=== PATIENT | male | born 1960 | race Caucasian/White ===

== ENCOUNTER 2016-10-26 12:18 | Emergency (ER) | payer MEDICARE ==
[~2016-10-26 12:18] MED LIST: ALPR2TAB2 PO; GABA800T PO; HYDR2TAB27 PO; INSU100I18 SUBQ; INSU100V4 SUBQ; INSU3INS3 SUBQ; MTH10T PO; OXYC30TA48 PO; POTA10CA42 PO; cannabis
[2016-10-26 12:25] VITALS: BP 149/83; PULSE 81; RESP 18; O2SAT 96
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
--- NOTE | 2016-10-26 15:04 | DRSVH ---
PROCEDURE: CT BRAIN WITHOUT CONTRAST ([id number]) INDICATIONS: fall, head injury, somnolent TECHNIQUE: Noncontrast 4.5 mm thick angled axial sections acquired from the foramen magnum to the vertex, with c oronal reformats. COMPARISON: [facility], CT, CT CERVICAL SPINE WO CON, 10/26/2016, 14:51. [facility], CT, BRAIN W/O CONTRAST, 11/06/2008, 10:33. FINDINGS: Image quality: Diagnostic CSF spaces: Basal cisterns are patent. No extra-axial fluid collections. Ventricles are normal in size and shape. Brain: No midline shift. No intracranial masses or hemorrhage. Souza-white matter interface is norm al. Skull and face: Calvarium and visualized facial bones are intact, without suspicious lesions. Sinuses: Visualized sinuses and mastoids are clear. IMPRESSION: Negative head CT. No acute intracranial hemorrhage is evident. Dictated by: Phil Corbin M.D. on 10/26/2016 at 14:01 Approved by: Phil Corbin M.D. on 10/26/2016 at 14:03
--- NOTE | 2016-10-26 15:07 | DRSVH ---
PROCEDURE: CT CERVICAL SPINE WITHOUT CONTRAST ([id number]) INDICATIONS: fall, head injury, somnolent TECHNIQUE: Noncontrast 3 mm thick sections acquired from the skull base to the T4 level. Sagittal and coronal r eformats were then constructed. For radiation dose reduction, the following was used: automated exp osure control, adjustment of mA and/or kV according to patient size. COMPARISON: [facility], MR, MR CERVICAL SPINE WO CON, 07/12/2016, 15:18. FINDINGS: Image quality: Diagnostic. Bones: The craniocervical and atlantoaxial joints are well-maintained. The odontoid is intact. The vertebral body heights and prevertebral soft tissues are within normal limits throughout the cervical spine without evidence to suggest acute compression fracture. No other fractures are evident within the cervical spine. The bone mineralization is within normal limits. Moderate multilevel degenerative changes of the cervical spine are present demonstrating mild areas o f disc height loss, moderate disc osteophyte complexes, and mild to moderate facet arthropathy. Ther e also are degenerative changes of the cranial occipital and atlantoaxial joints. Soft tissues: No prevertebral soft tissue swelling. The imaged lung apices are clear. Imaged porti ons of the mediastinum are unremarkable. Otherwise, the remainder of the imaged soft tissues of the neck are within normal limits. IMPRESSION: 1. No acute fracture of the cervical spine. 2. Moderate multilevel degenerative changes of the cervical spine. Dictated by: Phil Corbin M.D. on 10/26/2016 at 14:03 Approved by: Phil Corbin M.D. on 10/26/2016 at 14:05
== END 2016-10-26 15:12 | disposition left against medical advice (07) ==
LOC: SED 12:18
DX: M54.2 Cervicalgia (principal); W01.10XA Fall on same level from slipping, tripping and stumbling with subsequent striking against unspecified object, initial encounter; Y93.01 Activity, walking, marching and hiking; Y99.8 Other external cause status; Y92.410 Unspecified street and highway as the place of occurrence of the external cause; E11.9 Type 2 diabetes mellitus without complications; I10 Essential (primary) hypertension; F17.200 Nicotine dependence, unspecified, uncomplicated; Z86.69 Personal history of other diseases of the nervous system and sense organs; Z90.89 Acquired absence of other organs; Z79.4 Long term (current) use of insulin; Z88.5 Allergy status to narcotic agent; Z88.6 Allergy status to analgesic agent